=== PATIENT | male | born 1935 | race Caucasian/White ===

== ENCOUNTER → 2019-11-05 | Outpatient (CLI) | payer MEDICARE, OTHER ==
[~2019-11-05] MED LIST: AMIO200T4 PO; ASPI-808 PO; CALC0.253 PO; CEPH-507 PO; CHOL200025 PO; DOXA1TAB2 PO; FENO145T37 PO; HYDR-3820 PO; HYDR-3875 PO; LEVO75TA6 PO; MULT1TAB69 PO; calcitrol PO
--- NOTE | 2019-11-05 11:40 | Diagnostic Imaging Report ---
PROCEDURE: CT abdomen and pelvis without contrast. TECHNIQUE: Multiple contiguous axial images were obtained through the abdomen and pelvis without the use of intravenous contrast. Auto Exposure Controls were utilized during the CT exam to meet ALARA standards for radiation dose reduction. INDICATION: Prostate carcinoma. COMPARISON: No prior studies are available for comparison. FINDINGS: Imaging through the lung bases demonstrates trace bilateral pleural fluid or pleural thickening. The heart is enlarged. Cardiac pacemaker is noted. No discrete liver mass is identified. The gallbladder is surgically absent. No biliary ductal dilatation is seen. Pancreas is unremarkable. There are numerous granulomas throughout the spleen. No adrenal mass is detected. Kidneys contain numerous cortical low densities most suggestive of cysts. The largest are on the left measuring 4.0 x 5.6 cm. No hydronephrosis is identified. Aorta and iliac vessels are heavily calcified but nonaneurysmal. No central retroperitoneal or mesenteric lymphadenopathy is detected. The bowel loops are normal caliber. Appendix is unremarkable in the right lower quadrant. There is diverticulosis of the sigmoid colon but no evidence of acute diverticulitis. There is no free fluid or fluid collection identified. Patient appears to have a suprapubic catheter. Bladder is decompressed. No pelvic lymphadenopathy is seen. The bony structures demonstrate a healing fracture of the left inferior pubic ramus. No osteoblastic lesion is seen. IMPRESSION: 1. Trace bilateral pleural effusions/pleural thickening. 2. Cardiomegaly. 3. Bilateral renal low density masses suggestive of cysts. 4. No evidence of abdominal or pelvic lymphadenopathy. 5. Uncomplicated sigmoid diverticulosis. 6. Healing left inferior pubic ramus fracture. Dictated by: Dictated on workstation # [id number]
--- NOTE | 2019-11-05 15:54 | Diagnostic Imaging Report ---
INDICATION: Prostate carcinoma. TECHNIQUE: Patient was administered 23.1 mCi technetium 99m MDP intravenously and whole body imaging was performed after a three-hour delay. COMPARISON: No prior bone scans are available for comparison. FINDINGS: There is normal uptake of activity by the axial and appendicular skeleton. There is uptake by both kidneys with excretion into the urinary bladder. No abnormal foci of tracer accumulation are seen to suggest osseous metastatic disease. IMPRESSION: No scintigraphic evidence of osseous metastatic disease. Dictated by: Dictated on workstation # [id number]
== END ==
LOC: CARD 10:43
PROVIDERS: ATTEND Urology
DX: I51.7 Cardiomegaly (principal); N28.89 Other specified disorders of kidney and ureter; K57.30 Diverticulosis of large intestine without perforation or abscess without bleeding; S32.592D Other specified fracture of left pubis, subsequent encounter for fracture with routine healing; C61 Malignant neoplasm of prostate
CPT/HCPCS: 74176; 78306